=== PATIENT | male | born 1955 | race African-American/Black ===

== ENCOUNTER 2018-05-28 05:12 | Inpatient (IN) | payer OTHER ==
[2018-05-28] VITALS (11 sets, daily range): BP systolic 104–128; BP diastolic 51–85
[~2018-05-28] VITALS: Ht 172.7 cm; Wt 60.0 kg
[2018-05-28] MEDS ORDERED: celeBREX 200mg Cap **SURGERY PATIENTS ONLY ORAL ONE (06:00)
[2018-05-28] MEDS ORDERED: ceFAZolin 1gm IVPB IVPB ONE ×2 (06:00)
[2018-05-28] MEDS ORDERED: oxyCONTIN 20mg tab ORAL ONE (06:00)
[2018-05-28] MEDS ORDERED: NAPROXEN375 M2 ORAL (06:12)
[2018-05-28] MEDS ORDERED: cloNIDine 1000mcg/10ml inj ONE (06:26)
[2018-05-28] MEDS ORDERED: Bupivacaine 0.5% Inj 30 ml vial INJ ONE (06:26)
[2018-05-28] MEDS ORDERED: LR 1000ml 1,000 ML IVLG SCH (06:36)
--- NOTE | 2018-05-28 06:39 | Anethesia Preoperative Eval ---
Anesthesia Pre-op PMH/ROS General Date of Evaluation: May 28, 2018 Time of Evaluation: 06:51 Anesthesiologist: Jasmyn ASA Score: ASA 2 Mallampati Score Class I : Soft palate, uvula, fauces, pillars visible Class II: Soft palate, uvula, fauces visible Class III: Soft palate, base of uvula visible Class IV: Only hard plate visible Mallampati Classification: Class II Surgeon: Cuauhtemoc Diagnosis: R Knee Pain Surgical Procedure: R Knee Arthroplasty Anesthesia History: none Family History: no anesthesia problems Allergies: Coded Allergies: No Known Allergies (Unverified , 05/24/18) Medications: see eMAR Patient NPO?: Yes NPO Date: May 27, 2018 NPO Time: 2200 Past Medical History Cardiovascular: Reports: HTN PSxH Narrative: R Knee Arthroscopy, L IHR Anesthesia Pre-op Phys. Exam Physician Exam Last Vital Signs Date Time Temp Pulse Resp B/P (MAP) Pulse Ox O2 Delivery O2 Flow Rate FiO2 05/28/18 06:18 Room Air 05/28/18 06:12 96.7 61 18 128/84 (99) 99 Constitutional: NAD Neurologic: CN 2-12 intact Cardiovascular: RRR Respiratory: CTA Gastrointestinal: S/NT/ND Airway Exam Mallampati Score: Class II MO: full ROM: full Teeth: intact, broken Anesthesia Pre-op A/P Risk Assessment & Plan Assessment: ASA 2 Plan: GA, Spinal, SED Status Change Before Surgery: No Pre-Antibiotics Dru Grams Ancef IV Given Within 1 Hr of Incision: Yes Time Given: 07:16 Fidel Vines MD May 28, 2018 06:39
[2018-05-28] MEDS ORDERED: oxyCODONE HCL/Acetaminophen 5/325mg ORAL PRN (06:45)
[2018-05-28] MEDS ORDERED: DiphenhydrAMINE 50mg/ml Inj IVP PRN (06:45)
[2018-05-28] MEDS ORDERED: HYDROcodone/Acetamin 7.5/325 tab ORAL PRN (06:45)
[2018-05-28] MEDS ORDERED: Tranexamic Acid 1,000 MG in NS 65 ML IVPB ONE (06:45)
[2018-05-28] MEDS ORDERED: Norco 5mg/325mg tab ORAL PRN (06:45)
[2018-05-28] MEDS ORDERED: Metoclopramide 10mg/2ml Inj IVP PRN (06:45)
[2018-05-28] MEDS ORDERED: Atropine Sulfate 0.4mg/ml inj IVP PRN (06:45)
[2018-05-28] MEDS ORDERED: Ketorolac 30mg Inj IV PRN ×2 (06:45)
[2018-05-28] MEDS ORDERED: fentaNYL 100 mcg/2 mL IV PRN (06:45)
[2018-05-28] MEDS ORDERED: Midazolam 2mg/2ml Inj IVP PRN (06:45)
[2018-05-28] MEDS ORDERED: Hydromorphone 0.5mg/0.5ml inj IVP PRN (06:45)
[2018-05-28] MEDS ORDERED: LORazepam Inj 2mg/ml 1ml IV PRN (06:45)
[2018-05-28] MEDS ORDERED: Meperidine 50mg/ml Inj(FOR RIGORS ONLY) IVP PRN (06:45)
[2018-05-28] MEDS ORDERED: EPINEPHrine 1mg/1ml Amp ONE (06:53)
[2018-05-28] MEDS ORDERED: Bacitracin 50000 Units Vial ONE (06:57)
[2018-05-28] MEDS ORDERED: NeoSporin Gu Irrig 1ml Amp IRRIG ONE (06:57)
[2018-05-28] MEDS ORDERED: Propofol 200mg/20ml IV ONE (07:00)
[2018-05-28] MEDS ORDERED: Sterile Water For Irrig 2000ml IRRIG ONE (07:00)
[2018-05-28] MEDS ORDERED: NS Irrig 1000ml ONE (07:00)
[2018-05-28] MEDS ORDERED: Sterile Water Irrig 1000ml IRRIG ONE (07:00)
[2018-05-28] MEDS ORDERED: LR 1000ml ONE (07:00)
--- NOTE | 2018-05-28 07:03 | Pre-Procedure Note/Attestation ---
Pre-Procedure Note/Attestation Complete Prior to Procedure Planned Procedure: right Procedure Narrative: rt total knee arthroplasty Indications for Procedure Pre-Operative Diagnosis: rt knee arthritis Attestation I attest that I discussed the nature of the procedure; its benefits; risks and complications; and alternatives (and the risks and benefits of such alternatives ), prior to the procedure, with the patient (or the patient's legal herbicide service sales representative). I attest that, if there was a reasonable possibility of needing a blood transfusion, the patient (or the patient's legal herbicide service sales representative) was given the [facility] standardized written summary, pursuant to the [place] Blood Safety Act ([place] Health and Safety Code # 1645, as amended). I attest that I re-evaluated the patient just prior to the surgery and that there has been no change in the patient's H&P, except as documented below: NONE Dillon Posadas MD May 28, 2018 07:03
[2018-05-28] MEDS ORDERED: HYDROmorphone 1mg/ml Carpuject SUBQ PRN (07:15)
[2018-05-28] MEDS ORDERED: Milk of Magnesia 30ml Ud ORAL PRN (07:15)
[2018-05-28] MEDS ORDERED: ePHEDrine 50mg/ml Inj ONE ×2 (07:29→07:32)
--- NOTE | 2018-05-28 07:47 | Immediate Post-Op Evaluation ---
Immediate Post-Op Evalulation Immediate Post-Op Evalulation Procedure: R Knee Total Arthroplasty Date of Evaluation: May 28, 2018 Time of Evaluation: 10:00 IV Fluids: 1000 LR Blood Products: 0 Estimated Blood Loss: 30 Urinary Output: 400 Blood Pressure Systolic: 126 Blood Pressure Diastolic: 85 Pulse Rate: 102 Respiratory Rate: 16 O2 Sat by Pulse Oximetry: 100 Temperature (Fahrenheit): 97.8 Pain Score (1-10): 1 Nausea: No Vomiting: No Complications 0 Patient Status: awake, reacts, patent, none Hydration Status: adequate Dru Grams Ancef IV Given Within 1 Hr of Incision: Yes Time Given: 07:16 Fidel Vines MD May 28, 2018 07:47
[2018-05-28] MEDS ORDERED: Dexamethasone 4mg/ml vial ONE (09:37)
[2018-05-28] MEDS ORDERED: Lidocaine 1% MPF 10mg/ml 5ml ONE (09:37)
[2018-05-28] MEDS ORDERED: Sodium Chloride 10ml vial INJ ONE (09:37)
--- NOTE | 2018-05-28 09:37 | Brief Operative Note ---
Immediate Post Operative Note Operative Note Chief Complaint: rt knee pain Pre-op Diagnosis: rt knee arthritis Procedure: rt total knee arthroplasty Post-op Diagnosis: same as pre-op Findings: consistent w/pre-op dx studies Surgeon: md oliva Residential Carpet Installer: jasmine curtis Anesthesiologist: md timbo Anesthesia: general Specimen: yes Complications: none Condition: stable Fluids: ns Estimated Blood Loss: minimal Drains: none Implant(s) used?: Yes - Kinsey Alicea May 28, 2018 09:36
[2018-05-28] MEDS: Docusate 100mg cap ORAL SCH ×2 (12:07→17:32)
--- NOTE | 2018-05-28 12:25 | Diagnostic Imaging Report ---
Indications: Postoperative, status post total knee arthroplasty Technique: Two views of the right knee Comparison: None Findings: Two postoperative views of the brain knee demonstrate total knee arthroplasty, good anatomic alignment of the prosthesis. There is postsurgical soft tissue air. Overlying skin nguyễn. Impression: Postoperative right knee, no unusual features.
[2018-05-28] MEDS: D5 1/2NS w/KCl 20mEq 1,000 ML IV SCH (12:39)
[2018-05-28] MEDS: ceFAZolin sod 1 GM in D5W 55 ML IV SCH ×2 (13:47→22:42)
[2018-05-28] MEDS: Norco 5mg/325mg tab ORAL PRN (19:12)
--- NOTE | 2018-05-28 20:54 | General Progress Note ---
Assessment/Plan Status Narrative S/P TJKR PERIOPERATIVE BLOOD LOSS Assessment/Plan PHYSICAL THERPAY OCCUPATIONAL THERPAY PAINCONTRL MONITOR CBC CPM DVT PROPHYALXIS. Subjective Date patient seen: May 28, 2018 Time patient seen: 20:52 Constitutional: Reports: no symptoms HEENT: Reports: no symptoms Respiratory: Reports: no symptoms Gastrointestinal/Abdominal: Reports: no symptoms Allergies: Coded Allergies: No Known Allergies (Unverified , 05/24/18) Subjective DENIES ANY CHEST PAIN Objective Last 24 Hour Vital Signs Date Time Temp Pulse Resp B/P (MAP) Pulse Ox O2 Delivery O2 Flow Rate FiO2 05/28/18 18:02 98.2 05/28/18 16:00 98.2 66 18 104/51 (68) 98 05/28/18 12:30 98.2 69 18 116/68 (84) 100 05/28/18 11:28 97.4 78 18 110/70 (83) 100 05/28/18 11:23 Nasal Cannula 3.0 05/28/18 10:45 97.4 74 16 128/77 100 Nasal Cannula 3 05/28/18 10:30 94 16 119/81 100 Nasal Cannula 3 05/28/18 10:15 80 16 122/84 100 Nasal Cannula 3 05/28/18 09:59 100 16 126/85 100 Simple Mask 8 05/28/18 09:54 101 16 126/85 100 Simple Mask 8 05/28/18 09:49 97.8 103 16 126/85 100 Simple Mask 8 05/28/18 09:49 102 16 100 05/28/18 06:18 Room Air 05/28/18 06:12 96.7 61 18 128/84 (99) 99 Intake and Output 05/27/18 05/28/18 19:00 07:00 # Voids 1 Height (Feet): 5 Height (Inches): 8.00 Weight (Pounds): 130 General Appearance: WD/WN EENT: PERRL/EOMI Neck: non-tender Cardiovascular: normal rate, no JVD Respiratory/Chest: chest wall non-tender, lungs clear Abdomen: soft Berny Hastings MD May 28, 2018 20:54
--- NOTE | 2018-05-28 21:00 | Operative Note - Dictated ---
DATE OF OPERATION: 05/28/2018 PREOPERATIVE DIAGNOSIS: Right knee arthritis with failed conservative treatment. POSTOPERATIVE DIAGNOSIS: Right knee arthritis with failed conservative treatment. PROCEDURE: Right total knee arthroplasty using a [place] Triathlon System using a size 3 cruciate-retaining femoral component, size 4 primary tibial base plate, 9 mm Triathlon tibial bearing insert, and 29 mm patellar component, all cemented. SURGEON: Dillon Posadas M.D. CONSULTING IT ARCHITECT: Kinsey Cooley PA-C. ANESTHESIOLOGIST: Fidel Vines M.D. ANESTHESIA: Spinal anesthesia. ESTIMATED BLOOD LOSS: Less than 100 mL. COMPLICATIONS: None. TOURNIQUET TIME: 70 minutes. BRIEF HISTORY: The patient is a pleasant 62-year-old gentleman, who was being treated with me for some time. Initially, he had some internal derangement and arthroscopy was performed. Subsequently, he continued to have some pain. He did ample physical therapy. He was given some viscosupplementation. He continued to be significantly painful in the right knee. After full discussion of risks and benefits of surgery and complications associated with it including infection, bleeding, neurovascular complication, possibility of continued pain, possibility of continued weakness, possibility of DVT or PEs, loss of motion, infection requiring resection arthroplasty, or other complications that may arise, he opted for surgical treatment as described above. OPERATIVE PROCEDURE: The patient was brought to the operative room table and was placed supine. All pressure points were well padded. Spinal anesthesia was induced and tranexamic acid and preoperative antibiotics were given. The right leg was prepped and draped in usual sterile fashion and the right leg was exsanguinated and tourniquet was inflated to 275 mmHg. Prior to start of procedure, time-out was performed. At this time, the standard anterior approach to the knee was taken and medial parapatellar arthrotomy was performed. The medial releases were performed. The patella was everted and the knee was bent. ACL and PCL were resected. At this point, the intramedullary access to the femur was obtained using a drill. The distal cutting guide was placed in about 5 degrees of valgus and a standard cut was performed in 5 degrees of valgus. At this point, sizing was performed and size 3 appeared to be the right femoral size. Therefore, the guide was placed in about 3 degrees of external rotation and anterior, posterior, and chamfer cuts were performed without any complication. This provided excellent cuts. At this point, the trial prostheses were applied and the peg holes were drilled. The range of motion was checked and appeared to be perfect. At this point, care was given to the tibia. The femoral trial component was removed. The posterior medial and lateral retractors were placed in. Medial and lateral menisci were removed. The anterior tibial crest was palpated and marked and extramedullary tibial guide was applied re-creating the slope. The anatomical axis was re-created, the slope was re-created, and 9 mm was taken off the least-involved side, which was the medial side. Once the guide was placed in, soft tissues were retracted and tibial cut was performed without any complication. At this point, the flexion-extension gap was checked and appeared to be perfect. The stem of the tibial component was then drilled and punched. Trial components were placed and a 9 mm poly tibial insert was applied and range of motion and stability was checked. There was full extension, full flexion, and great stability at 0, 30 degrees, 45 degrees, and 90 degrees. There was no instability. Ligaments were well balanced. At this point, care was given to the tibia. The tibia was everted. The patella was measured. It measured 22 mm. The standard patellar cut was then performed, taking 8 mm off the 14 mm of patella remaining. At this point, sizing was performed and size 29 appeared to be the right size. Therefore, peg holes for first 29 mm patella poly was drilled. The trial component was applied. The patellofemoral tracking was checked with the prosthesis in place with excellent patellofemoral tracking with minimal pressure. At this point, all trial components were removed. Knee was thoroughly irrigated using copious amount of fluid with Simpulse irrigation. Cement was mixed and the tibial component, femoral component, and patella components were all cemented under pressure. The excess cement was removed. Once the cement dried up, trialing was performed with 9 mm and appeared to be perfect as discussed previously. Therefore, an actual 9 mm ultra cross-linked polyethylene insert was then applied and locked in without any complications. At this point, the range of motion, stability, and patellofemoral tracking was checked and rechecked, and appeared to be perfect as described previously. Tourniquet was deflated and there was minimal bleeding which was stopped. The extensor mechanism was closed using #1 Vicryl suture. Subcutaneous tissue was closed using 2-0 Vicryl suture. Skin was closed using 3-0 Monocryl suture. It should be noted that at the time of the patellar cut, due to the thinness of the patella, approximately 20% of the undersurface of the patella tendon was cut along with the bone. There was no way to avoid that, however, this was repaired back using 3 [id number] stitches using #2 FiberWire. All lap counts and instrument counts were correct. The patient was taken to recovery room in stable condition. Dillon Posadas M.D. DR: Osito JOB#: [id number] CC:
[2018-05-28] MEDS: oxyCONTIN 20mg tab ORAL SCH (22:41)
[2018-05-28] MEDS: Enoxaparin 30mg Inj SUBQ SCH (22:43)
[2018-05-29] VITALS: BP 105/60
[2018-05-29] MEDS: D5 1/2NS w/KCl 20mEq 1,000 ML IV SCH ×2 (02:13→12:18)
[2018-05-29 04:00] VITALS: BP_SYST 115; BP_SYST 122; BP_DIAS 64; BP_DIAS 74
[2018-05-29] MEDS: Norco 5mg/325mg tab ORAL PRN ×3 (06:21→14:31)
[2018-05-29 07:18] LABS: BASOPHILS % (AUTO) 0.6 % (0.0-2.0); EOSINOPHILS % (AUTO) 0.1 % (0.0-3.0); HEMATOCRIT 38.2 % (42.0-52.0); HEMOGLOBIN 12.5 G/DL (14.2-18.0); LYMPHOCYTES % (AUTO) 11.1 % (20.0-45.0); MEAN CORPUSCULAR VOLUME 78 FL (80-99); MONOCYTES % (AUTO) 11.8 % (1.0-10.0); NEUTROPHILS % (AUTO) 76.5 % (45.0-75.0); PLATELET COUNT 153 K/UL (150-450); RED BLOOD COUNT 4.87 M/UL (4.70-6.10); RED CELL DISTRIBUTION WIDTH 11.7 % (11.6-14.8); WHITE BLOOD COUNT 8.9 K/UL (4.8-10.8)
[2018-05-29 08:00] VITALS: BP 125/69
--- NOTE | 2018-05-29 08:18 | Orthopedic Progress Note ---
Orthopedic - Progress Note Subjective Symptoms: improved - already walked with PT. up in chair Objective Laboratory Tests Test 05/29/18 06:03 White Blood Count 8.9 K/UL (4.8-10.8) Red Blood Count 4.87 M/UL (4.70-6.10) Hemoglobin 12.5 G/DL (14.2-18.0) L Hematocrit 38.2 % (42.0-52.0) L Mean Corpuscular Volume 78 FL (80-99) L Mean Corpuscular Hemoglobin 25.8 PG (27.0-31.0) L Mean Corpuscular Hemoglobin Concent 32.9 G/DL (32.0-36.0) Red Cell Distribution Width 11.7 % (11.6-14.8) Platelet Count 153 K/UL (150-450) Mean Platelet Volume 8.9 FL (6.5-10.1) Neutrophils (%) (Auto) 76.5 % (45.0-75.0) H Lymphocytes (%) (Auto) 11.1 % (20.0-45.0) L Monocytes (%) (Auto) 11.8 % (1.0-10.0) H Eosinophils (%) (Auto) 0.1 % (0.0-3.0) Basophils (%) (Auto) 0.6 % (0.0-2.0) Last 24 Hour Vital Signs Date Time Temp Pulse Resp B/P (MAP) Pulse Ox O2 Delivery O2 Flow Rate FiO2 05/29/18 08:05 Room Air 05/29/18 04:00 98.2 100 20 115/74 (88) 98 05/29/18 00:00 99.1 81 18 105/60 (75) 95 05/28/18 21:00 Room Air 05/28/18 20:00 97.4 65 17 115/78 (90) 100 05/28/18 18:02 98.2 05/28/18 16:00 98.2 66 18 104/51 (68) 98 05/28/18 12:30 98.2 69 18 116/68 (84) 100 05/28/18 11:28 97.4 78 18 110/70 (83) 100 05/28/18 11:23 Nasal Cannula 3.0 05/28/18 10:45 97.4 74 16 128/77 100 Nasal Cannula 3 05/28/18 10:30 94 16 119/81 100 Nasal Cannula 3 05/28/18 10:15 80 16 122/84 100 Nasal Cannula 3 05/28/18 09:59 100 16 126/85 100 Simple Mask 8 05/28/18 09:54 101 16 126/85 100 Simple Mask 8 05/28/18 09:49 97.8 103 16 126/85 100 Simple Mask 8 05/28/18 09:49 102 16 100 Intake and Output 05/28/18 05/29/18 19:00 07:00 Intake Total 2135 ml 1305 ml Output Total 2030 ml 650 ml Balance 105 ml 655 ml Intake Oral 485 ml 480 ml IV Total 1650 ml 825 ml Output Urine Total 2000 ml 650 ml Estimated Blood Loss 30 ml Laboratory Tests Test 05/29/18 06:03 White Blood Count 8.9 K/UL (4.8-10.8) Red Blood Count 4.87 M/UL (4.70-6.10) Hemoglobin 12.5 G/DL (14.2-18.0) L Hematocrit 38.2 % (42.0-52.0) L Mean Corpuscular Volume 78 FL (80-99) L Mean Corpuscular Hemoglobin 25.8 PG (27.0-31.0) L Mean Corpuscular Hemoglobin Concent 32.9 G/DL (32.0-36.0) Red Cell Distribution Width 11.7 % (11.6-14.8) Platelet Count 153 K/UL (150-450) Mean Platelet Volume 8.9 FL (6.5-10.1) Neutrophils (%) (Auto) 76.5 % (45.0-75.0) H Lymphocytes (%) (Auto) 11.1 % (20.0-45.0) L Monocytes (%) (Auto) 11.8 % (1.0-10.0) H Eosinophils (%) (Auto) 0.1 % (0.0-3.0) Basophils (%) (Auto) 0.6 % (0.0-2.0) Wound: clean, dry, intact Drains: none Neuro Status: normal Vascular Status: normal Additional Comments xray reviewed Assessment Post-op Diagnosis POD 1 Procedure Performed rt total knee arthroplasty Plan Plan: PT, discharge plan - to home on sunday with DME/services. dressing change in AM Knisey Cooley May 29, 2018 08:18
[2018-05-29] MEDS: celeBREX 200mg Cap **SURGERY PATIENTS ONLY ORAL SCH (08:37)
[2018-05-29] MEDS: Docusate 100mg cap ORAL SCH ×3 (08:37→17:28)
[2018-05-29] MEDS: oxyCONTIN 20mg tab ORAL SCH ×2 (08:37→20:26)
[2018-05-29] MEDS: Enoxaparin 30mg Inj SUBQ SCH ×2 (08:38→20:27)
--- NOTE | 2018-05-29 11:24 | 48 Hour Post Anesthesia Eval ---
Post Anesthesia Evaluation Procedure: R Knee Total Arthroplasty Date of Evaluation: May 29, 2018 Airway: patent Nausea: No Vomiting: No Pain Intensity: 2 Hydration Status: adequate Cardiopulmonary Status: at baseline Mental Status/LOC: patient returned to baseline Post-Anesthesia Complications: 0 Follow-up care needed: N/A - further care as per Denzel patterson Gema MD May 29, 2018 11:24
[2018-05-29 12:00] VITALS: BP 122/74
[2018-05-29] MEDS: HYDROcodone/Acetamin 7.5/325 tab ORAL PRN (12:17)
[2018-05-29 16:00] VITALS: BP 115/73
[2018-05-29 20:58] VITALS: BP 134/73
--- NOTE | 2018-05-29 22:15 | General Progress Note ---
Assessment/Plan Assessment/Plan s/p tkr pt ot dvt prophyalxis paincontrol sdoing well dc ivf dc planning Subjective Date patient seen: May 29, 2018 Time patient seen: 22:13 Allergies: Coded Allergies: No Known Allergies (Unverified , 05/24/18) Subjective DENIES ANY CHEST PAIN no palpitation no nausea Objective Last 24 Hour Vital Signs Date Time Temp Pulse Resp B/P (MAP) Pulse Ox O2 Delivery O2 Flow Rate FiO2 05/29/18 20:58 98.2 79 17 134/73 (93) 98 05/29/18 16:00 98.2 77 16 115/73 (87) 100 05/29/18 12:00 98.0 96 18 122/74 (90) 100 05/29/18 08:05 Room Air 05/29/18 08:00 97.7 84 19 125/69 (87) 100 05/29/18 04:00 98.2 100 20 115/74 (88) 98 05/29/18 00:00 99.1 81 18 105/60 (75) 95 Intake and Output 05/28/18 05/29/18 19:00 07:00 Intake Total 2135 ml 1380 ml Output Total 2030 ml 650 ml Balance 105 ml 730 ml Intake Oral 485 ml 480 ml IV Total 1650 ml 900 ml Output Urine Total 2000 ml 650 ml Estimated Blood Loss 30 ml Laboratory Tests 05/29/18 06:03: White Blood Count 8.9, Red Blood Count 4.87, Hemoglobin 12.5L, Hematocrit 38.2L , Mean Corpuscular Volume 78L, Mean Corpuscular Hemoglobin 25.8L, Mean Corpuscular Hemoglobin Concent 32.9, Red Cell Distribution Width 11.7, Platelet Count 153, Mean Platelet Volume 8.9, Neutrophils (%) (Auto) 76.5H, Lymphocytes ( %) (Auto) 11.1L, Monocytes (%) (Auto) 11.8H, Eosinophils (%) (Auto) 0.1, Basophils (%) (Auto) 0.6 Height (Feet): 5 Height (Inches): 8.00 Weight (Pounds): 132 General Appearance: WD/WN Neck: non-tender Cardiovascular: no gallop/murmur Respiratory/Chest: lungs clear Abdomen: soft Extremities: other - no edema Berny Hastings MD May 29, 2018 22:15
[2018-05-30] VITALS (7 sets, daily range): BP systolic 102–129; BP diastolic 66–80
[2018-05-30 06:42] LABS: BASOPHILS % (AUTO) 0.8 % (0.0-2.0); EOSINOPHILS % (AUTO) 1.2 % (0.0-3.0); HEMATOCRIT 37.3 % (42.0-52.0); HEMOGLOBIN 12.1 G/DL (14.2-18.0); LYMPHOCYTES % (AUTO) 18.6 % (20.0-45.0); MEAN CORPUSCULAR VOLUME 79 FL (80-99); MONOCYTES % (AUTO) 14.1 % (1.0-10.0); NEUTROPHILS % (AUTO) 65.4 % (45.0-75.0); PLATELET COUNT 158 K/UL (150-450); RED BLOOD COUNT 4.71 M/UL (4.70-6.10); RED CELL DISTRIBUTION WIDTH 12.1 % (11.6-14.8); WHITE BLOOD COUNT 7.6 K/UL (4.8-10.8)
--- NOTE | 2018-05-30 07:49 | Orthopedic Progress Note ---
Orthopedic - Progress Note Subjective Symptoms: c/o post-op knee pain Additional Comments Doing well with PT. Feeling ok Objective Last 24 Hour Vital Signs Date Time Temp Pulse Resp B/P (MAP) Pulse Ox O2 Delivery O2 Flow Rate FiO2 05/30/18 04:41 99.5 108 20 102/66 (78) 96 05/30/18 00:08 98.4 85 16 127/77 (94) 98 05/30/18 00:00 98.4 85 16 127/77 (94) 98 05/29/18 21:00 Room Air 05/29/18 20:58 98.2 79 17 134/73 (93) 98 05/29/18 16:00 98.2 77 16 115/73 (87) 100 05/29/18 12:00 98.0 96 18 122/74 (90) 100 05/29/18 08:05 Room Air 05/29/18 08:00 97.7 84 19 125/69 (87) 100 Intake and Output 05/29/18 05/30/18 18:59 06:59 Intake Total 1500 ml 660 ml Balance 1500 ml 660 ml Intake Oral 600 ml 360 ml IV Total 900 ml 300 ml # Voids 5 3 Laboratory Tests Test 05/30/18 05:25 White Blood Count 7.6 K/UL (4.8-10.8) Red Blood Count 4.71 M/UL (4.70-6.10) Hemoglobin 12.1 G/DL (14.2-18.0) L Hematocrit 37.3 % (42.0-52.0) L Mean Corpuscular Volume 79 FL (80-99) L Mean Corpuscular Hemoglobin 25.6 PG (27.0-31.0) L Mean Corpuscular Hemoglobin Concent 32.4 G/DL (32.0-36.0) Red Cell Distribution Width 12.1 % (11.6-14.8) Platelet Count 158 K/UL (150-450) Mean Platelet Volume 9.1 FL (6.5-10.1) Neutrophils (%) (Auto) 65.4 % (45.0-75.0) Lymphocytes (%) (Auto) 18.6 % (20.0-45.0) L Monocytes (%) (Auto) 14.1 % (1.0-10.0) H Eosinophils (%) (Auto) 1.2 % (0.0-3.0) Basophils (%) (Auto) 0.8 % (0.0-2.0) Wound: clean, dry Drains: none Neuro Status: normal Vascular Status: normal Assessment Post-op Diagnosis s/p Right TKA Plan Plan: PT, pain management, discharge plan Additional Comments dressing changes today Dillon Posadas MD May 30, 2018 07:49
[2018-05-30] MEDS: oxyCONTIN 20mg tab ORAL SCH ×2 (09:00→20:39)
[2018-05-30] MEDS: celeBREX 200mg Cap **SURGERY PATIENTS ONLY ORAL SCH (09:54)
[2018-05-30] MEDS: Docusate 100mg cap ORAL SCH ×3 (09:55→18:06)
[2018-05-30] MEDS: Enoxaparin 30mg Inj SUBQ SCH ×2 (10:00→20:40)
[2018-05-30] MEDS: HYDROcodone/Acetamin 7.5/325 tab ORAL PRN (12:35)
--- NOTE | 2018-05-30 17:47 | General Progress Note ---
Assessment/Plan Assessment/Plan s/p total knee arthroplasty erioperative blood loss post op anemia pt ot dvt prophyalxios doing well dc home in am with lovenox. Subjective Date patient seen: May 30, 2018 Time patient seen: 17:45 Allergies: Coded Allergies: No Known Allergies (Unverified , 05/24/18) Subjective doing well tolerating the pain going home tommorrow Objective Last 24 Hour Vital Signs Date Time Temp Pulse Resp B/P (MAP) Pulse Ox O2 Delivery O2 Flow Rate FiO2 05/30/18 13:05 98.0 05/30/18 12:00 98.1 109 20 128/79 (95) 97 05/30/18 09:59 98.0 05/30/18 09:00 Room Air 05/30/18 08:00 98.0 110 20 129/79 (96) 90 05/30/18 04:41 99.5 108 20 102/66 (78) 96 05/30/18 00:08 98.4 85 16 127/77 (94) 98 05/30/18 00:00 98.4 85 16 127/77 (94) 98 05/29/18 21:00 Room Air 05/29/18 20:58 98.2 79 17 134/73 (93) 98 Intake and Output 05/29/18 05/30/18 19:00 07:00 Intake Total 1500 ml 585 ml Balance 1500 ml 585 ml Intake Oral 600 ml 360 ml IV Total 900 ml 225 ml # Voids 5 3 Laboratory Tests 05/30/18 05:25: White Blood Count 7.6, Red Blood Count 4.71, Hemoglobin 12.1L, Hematocrit 37.3L , Mean Corpuscular Volume 79L, Mean Corpuscular Hemoglobin 25.6L, Mean Corpuscular Hemoglobin Concent 32.4, Red Cell Distribution Width 12.1, Platelet Count 158, Mean Platelet Volume 9.1, Neutrophils (%) (Auto) 65.4, Lymphocytes (% ) (Auto) 18.6L, Monocytes (%) (Auto) 14.1H, Eosinophils (%) (Auto) 1.2, Basophils (%) (Auto) 0.8 Height (Feet): 5 Height (Inches): 8.00 Weight (Pounds): 132 General Appearance: WD/WN EENT: PERRL/EOMI Neck: non-tender Cardiovascular: no JVD Respiratory/Chest: lungs clear Abdomen: non tender, soft Extremities: other Berny Hastings MD May 30, 2018 17:46
[2018-05-31] VITALS: BP 130/70
[2018-05-31 04:00] VITALS: BP 122/78
[2018-05-31 07:27] LABS: BASOPHILS % (AUTO) 1.3 % (0.0-2.0); EOSINOPHILS % (AUTO) 1.8 % (0.0-3.0); HEMATOCRIT 36.8 % (42.0-52.0); MEAN CORPUSCULAR VOLUME 78 FL (80-99); PLATELET COUNT 166 K/UL (150-450); RED CELL DISTRIBUTION WIDTH 11.7 % (11.6-14.8); WHITE BLOOD COUNT 7.6 K/UL (4.8-10.8)
[2018-05-31 08:00] VITALS: BP 123/87
--- NOTE | 2018-05-31 08:24 | Orthopedic Progress Note ---
Orthopedic - Progress Note Subjective Symptoms: improved Objective Laboratory Tests Test 05/31/18 06:30 White Blood Count 7.6 K/UL (4.8-10.8) Red Blood Count 4.70 M/UL (4.70-6.10) Hemoglobin 12.0 G/DL (14.2-18.0) L Hematocrit 36.8 % (42.0-52.0) L Mean Corpuscular Volume 78 FL (80-99) L Mean Corpuscular Hemoglobin 25.6 PG (27.0-31.0) L Mean Corpuscular Hemoglobin Concent 32.6 G/DL (32.0-36.0) Red Cell Distribution Width 11.7 % (11.6-14.8) Platelet Count 166 K/UL (150-450) Mean Platelet Volume 9.8 FL (6.5-10.1) Neutrophils (%) (Auto) 65.0 % (45.0-75.0) Lymphocytes (%) (Auto) 20.0 % (20.0-45.0) Monocytes (%) (Auto) 12.0 % (1.0-10.0) H Eosinophils (%) (Auto) 1.8 % (0.0-3.0) Basophils (%) (Auto) 1.3 % (0.0-2.0) Last 24 Hour Vital Signs Date Time Temp Pulse Resp B/P (MAP) Pulse Ox O2 Delivery O2 Flow Rate FiO2 05/31/18 04:00 97.9 85 18 122/78 (93) 98 05/31/18 00:00 97.5 90 19 130/70 (90) 97 05/30/18 21:00 Room Air 05/30/18 20:00 97.7 92 18 127/80 (96) 96 05/30/18 16:52 98.0 05/30/18 16:00 98.2 96 20 124/68 (86) 100 05/30/18 13:05 98.0 05/30/18 12:00 98.1 109 20 128/79 (95) 97 05/30/18 09:59 98.0 05/30/18 09:00 Room Air Intake and Output 05/30/18 05/31/18 19:00 07:00 Intake Total 1270 ml 400 ml Balance 1270 ml 400 ml Intake Oral 1270 ml 400 ml # Voids 2 2 Laboratory Tests Test 05/31/18 06:30 White Blood Count 7.6 K/UL (4.8-10.8) Red Blood Count 4.70 M/UL (4.70-6.10) Hemoglobin 12.0 G/DL (14.2-18.0) L Hematocrit 36.8 % (42.0-52.0) L Mean Corpuscular Volume 78 FL (80-99) L Mean Corpuscular Hemoglobin 25.6 PG (27.0-31.0) L Mean Corpuscular Hemoglobin Concent 32.6 G/DL (32.0-36.0) Red Cell Distribution Width 11.7 % (11.6-14.8) Platelet Count 166 K/UL (150-450) Mean Platelet Volume 9.8 FL (6.5-10.1) Neutrophils (%) (Auto) 65.0 % (45.0-75.0) Lymphocytes (%) (Auto) 20.0 % (20.0-45.0) Monocytes (%) (Auto) 12.0 % (1.0-10.0) H Eosinophils (%) (Auto) 1.8 % (0.0-3.0) Basophils (%) (Auto) 1.3 % (0.0-2.0) Wound: clean, dry, intact Drains: none Neuro Status: normal Vascular Status: normal Assessment Post-op Diagnosis POD 3 Procedure Performed rt total knee arthroplasty Plan Plan: discharge to home - has all meds, home with services and DME Kinsey Cooley May 31, 2018 08:24
--- NOTE | 2018-05-31 08:25 | Discharge Summary ---
Discharge Summary Hospital Course Date of Admission May 28, 2018 at 05:12 Date of Discharge 05/31/18 Admitting Diagnosis rt knee arthritis Reason for Hospitalization: elective surgery HPI Berny Bolton is a 62 year old male who was admitted on May 28, 2018 at 05 :12 for Unilateral Primary Osteoarthritis, Right Knee Consultations MD Venkata Procedures rt TKA Hospital Course course of recovery uneventful see d/c summary by Dr. Posadas FINAL DIAGNOSIS Right knee arthritis with failed conservative treatment status post right total knee arthroplasty Discharge Condition Upon Discharge: improving, stable Discharge Disposition Patient was discharged to home with services and DME Kinsey Cooley May 31, 2018 08:25 Janel Tolentino NP Jun 02, 2018 08:19
[2018-05-31] MEDS: Docusate 100mg cap ORAL SCH (08:41)
[2018-05-31] MEDS: celeBREX 200mg Cap **SURGERY PATIENTS ONLY ORAL SCH (08:42)
[2018-05-31] MEDS: oxyCONTIN 20mg tab ORAL SCH (08:44)
[2018-05-31] MEDS: Enoxaparin 30mg Inj SUBQ SCH (08:44)
== END 2018-05-31 11:35 | disposition home health service (06) | DRG 470 ==
LOC: SDSOVERFLO 05:12 → 3E 11:20
PROC: 0SRC0J9 Replacement of Right Knee Joint with Synthetic Substitute, Cemented, Open Approach (ICD-10-PCS; principal; 2018-05-28 07:00)
DX: M17.11 Unilateral primary osteoarthritis, right knee (principal); R73.03 Prediabetes
CPT/HCPCS: 36415; 85025; 86850; 86900; 86901; 86920; 87081; J2405